=== PATIENT | female | born 2000 | race Caucasian/White ===

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

== ENCOUNTER 2019-01-22 23:01 | Emergency (ER) | payer SELFPAY ==
[~2019-01-22] VITALS: Ht 162.6 cm; Wt 56.7 kg
[~2019-01-22 23:01] MED LIST: DOXY100C2 PO
[2019-01-22] MEDS ORDERED: KETOROLAC 15 MG/ML VIAL. IV ONE (23:45)
[2019-01-22] MEDS ORDERED: IV NORMAL SALINE 1000ML BAG 1,000 ML IV ONE (23:45)
[2019-01-22] MEDS ORDERED: diphenhydrAMINE 50 MG/ML VIAL IVP ONE (23:45)
[2019-01-22] MEDS ORDERED: PROCHLORPERAZINE 10 MG/2 ML VIAL. IV ONE (23:45)
--- NOTE | 2019-01-23 00:07 | PHYS DOC ---
Past Medical History Past Medical History: Migraines (MARIA DE JESUS GARCIA APRN) Alcohol Use: None Drug Use: Marijuana (MARIA DE JESUS GARCIA APRN) Adult General Chief Complaint Chief Complaint: HEADACHE HPI HPI Patient is a 18 year old female, accompanied by her significant other, who presents to the ER with complaints of a migraine headache. Pt states she awoke with the pain today. She reports photophobia, nausea, and vomiting with the pain. Pt rates her pain a 9/10 on the pain scale, she took tylenol prior to arrival with no relief of her symptoms. Pt states that she smokes a Juul daily and she last smoke marijuana 2 weeks ago while in [place]. ROS Pt denies fever, ear pain, sore throat, cough, shortness of breath, or seeing floaters. She denies abdominal pain, diarrhea, or dysuria. Pt states she is currently on her menstrual cycle, denies concerns of . All other ROS is neg unless otherwise noted in HPI. (MARIA DE JESUS GARCIA APRN) Review of Systems Review of Systems See Above (MARIA DE JESUS GARCIA APRN) Current Medications Current Medications Current Medications Medications (Trade) Dose Ordered Sig/[place] Start Time Stop Time Status Last Admin Dose Admin Dexamethasone Sodium Phosphate (Decadron) 10 mg 1X ONCE 01/23/19 00:30 01/23/19 00:31 DC 01/23/19 00:10 10 MG Diphenhydramine HCl (Benadryl) 25 mg 1X ONCE 01/22/19 23:45 01/22/19 23:46 DC 01/22/19 23:32 25 MG Ketorolac Tromethamine (Toradol 15mg Vial) 15 mg 1X ONCE 01/22/19 23:45 01/22/19 23:46 DC 01/22/19 23:32 15 MG Prochlorperazine Edisylate (Compazine) 10 mg 1X ONCE 01/22/19 23:45 01/22/19 23:46 DC 01/22/19 23:32 10 MG Sodium Chloride 1,000 ml @ 1,000 mls/hr 1X ONCE 01/22/19 23:45 01/23/19 00:44 DC 01/22/19 23:32 1,000 MLS/HR (SALVADOR ALVAREZ DO) Allergies Allergies Allergies Coded Allergies Type Severity Reaction Last Updated Verified No Known Drug Allergies 12/18/18 No (SALVADOR ALVAREZ DO) Physical Exam Physical Exam See Above Constitutional: Well developed, well nourished, no acute distress, non-toxic appearance. [] HENT: Normocephalic, atraumatic, bilateral external ears normal, oropharynx moist, no oral exudates, nose normal. [] Eyes: PERRLA, EOMI, conjunctiva normal, no discharge. [] Neck: Normal range of motion, no stridor. [] Cardiovascular:Heart rate regular rhythm Lungs & Thorax: Respirations even and unlabored, no retractions, no respiratory distress Skin: Warm, dry, no erythema, no rash. [] Extremities: No cyanosis, ROM intact, no edema. [] Neurologic: Alert and oriented X 3, normal motor function, normal sensory func tion, no focal deficits noted. [] Psychologic: Affect normal, judgement normal, mood normal. [] (MARIA DE JESUS GARCIA APRN) Current Patient Data Vital Signs Vital Signs Date Time Temp Pulse Resp B/P (MAP) Pulse Ox O2 Delivery O2 Flow Rate FiO2 01/23/19 00:35 61 15 98 01/22/19 23:16 97.7 120/72 (88) Room Air 97.7 (SALVADOR ALVAREZ DO) Lab Values Laboratory Tests Test 01/22/19 23:09 POC Urine HCG, Qualitative Hcg negative (Negative) (SALVADOR ALVAREZ DO) EKG EKG [] (MARIA DE JESUS GARCIA APRN) Radiology/Procedures Radiology/Procedures [] (MARIA DE JESUS GARCIA APRN) Course & Med Decision Making Course & Med Decision Making Pertinent Labs and Imaging studies reviewed. (See chart for details) Dx: Migraine Pt was given 1L of NS, 25 mg of benadryl, 15 mg of toradol, 10 mg of compazine, and 10 mg of decadron IV. She reports feeling better after medications. Follow up with PCP next week, return to the ER if symptoms worsen. [] (MARIA DE JESUS GARCIA APRN) Dragon Disclaimer Dragon Disclaimer This electronic medical record was generated, in whole or in part, using a voice recognition dictation system. (MARIA DE JESUS GARCIA APRN) Departure Departure Impression: Primary Impression: Migraine Disposition: HOME, SELF-CARE Condition: STABLE Referrals: NO PCP (PCP) Patient Instructions: Migraine Headache, [id number] Additional Instructions: Fill prescription(s) and use as directed. Home to rest in cool dark room. Follow up with your primary care doctor next week, return to the ER if your symptoms worsen. Scripts Ondansetron (ONDANSETRON ODT) 4 Mg Tab.rapdis 1 TAB PO PRN Q6-8HRS PRN for NAUSEA/VOMITING for 3 Days, #12 TAB 0 Refills Prov: MARIA DE JESUS GARCIA USER EXPERIENCE ANALYST 01/23/19 Butalb/Acetaminophen/Caffeine ([id number] 50-325-40) 1 Each Tablet 1 EACH PO QID PRN for HEADACHE for 3 Days, #12 % 0 Refills Prov: MARIA DE JESUS GARCIA USER EXPERIENCE ANALYST 01/23/19 Attending Signature Attending Signature I have reviewed the PA/BUSINESS PROCESS EXPERT's note and plan of care. I was available for cons ultation as needed during the patient's visit in the emergency department. I agree with the clinical impression, plan, and disposition. (SALVADOR ALVAREZ DO) Problem Qualifiers Primary Impression: Migraine Migraine type: unspecified Status migrainosus presence: without status migrainosus Intractability: not intractable Qualified Codes: G43.909 - Migraine, unspecified, not intractable, without status migrainosus MARIA DE JESUS GARCIA APRN Jan 23, 2019 00:07 SALVADOR ALVAREZ DO Jan 23, 2019 01:27
[2019-01-23] MEDS ORDERED: DEXAMETHASONE SOD PHOS 20 MG/5 ML VIAL. IV ONE (00:30)
[2019-01-23] MEDS ORDERED: BUTA1TAB23 PO (00:32)
[2019-01-23] MEDS ORDERED: ONDA4TAB12 PO (00:32)
[2019-01-23 00:35] VITALS: BP 100/48
== END 2019-01-23 00:44 | disposition home or self-care (01) ==
LOC: ER 23:01
DX: G43.909 Migraine, unspecified, not intractable, without status migrainosus (principal); R11.2 Nausea with vomiting, unspecified; F12.20 Cannabis dependence, uncomplicated
CPT/HCPCS: 81025; 96361; 96374; 96375; 99284; J0780; J1100; J1200; J1885; J7030